=== PATIENT | male | born 1955 | race Asian ===

== ENCOUNTER 2017-04-15 13:58 | Outpatient (CLI) | payer OTHER ==
[~2017-04-15 13:58] MED LIST: AMOXICILLIN250 M2 PO; DICL75TA4 PO; FISH OIL + D3 PO; HYDR10TA47 PO; HYDR2TAB12 PO; IBUPROFEN200 M1 PO; MSM PO; OMEPRAZOLE20 M2 PO; SAW PALMETTO1 CA1 PO; TERAZOSIN5 MG PO; VITA400C10 PO; VITAMIN C1000 MG PO; VITAMIN D22000 UNIT PO; [UNRECOGNIZED DRUG - OTHER] PO
== END 2017-04-15 22:50 | disposition home or self-care (01) ==
LOC: US 13:58
DX: E01.0 Iodine-deficiency related diffuse (endemic) goiter (principal); K21.9 Gastro-esophageal reflux disease without esophagitis; E78.00 Pure hypercholesterolemia, unspecified; H93.19 Tinnitus, unspecified ear

== ENCOUNTER 2017-04-21 11:31 | Outpatient (CLI) | payer OTHER ==
[2017-04-21 13:31] LABS: POTASSIUM 3.9 mmol/L (3.6-5.2); SODIUM 137 mmol/L (136-145)
== END 2017-04-21 19:10 | disposition home or self-care (01) ==
LOC: LAB 11:31
PROVIDERS: Family Medicine
DX: E01.0 Iodine-deficiency related diffuse (endemic) goiter (principal); E04.1 Nontoxic single thyroid nodule; I65.29 Occlusion and stenosis of unspecified carotid artery; R42 Dizziness and giddiness; R79.89 Other specified abnormal findings of blood chemistry; R73.9 Hyperglycemia, unspecified; E55.9 Vitamin D deficiency, unspecified; Z79.899 Other long term (current) drug therapy; Z51.81 Encounter for therapeutic drug level monitoring
CPT/HCPCS: 80053; 80061; 81000; 82043; 82306; 82570; 83036; 84439; 84443; 84481

== ENCOUNTER 2017-05-12 07:55 | Outpatient (CLI) | payer OTHER | END 2017-05-12 18:00 | disposition home or self-care (01) | LOC: NM 07:55 | DX: E01.0 Iodine-deficiency related diffuse (endemic) goiter (principal); E04.1 Nontoxic single thyroid nodule; R42 Dizziness and giddiness | CPT/HCPCS: A9516 ==

== ENCOUNTER 2017-06-02 10:41 | Outpatient (CLI) | payer OTHER | END 2017-06-02 19:07 | disposition home or self-care (01) | LOC: RAD 10:41 | DX: M79.641 Pain in right hand (principal); M15.8 Other polyosteoarthritis ==

== ENCOUNTER 2017-12-17 10:46 | Outpatient (CLI) | payer OTHER | END 2017-12-17 19:51 | disposition home or self-care (01) | LOC: RESP 10:46 | DX: Z01.818 Encounter for other preprocedural examination (principal) | CPT/HCPCS: 93005 ==

== ENCOUNTER 2018-02-25 13:20 | Outpatient (CLI) | payer OTHER | END 2018-02-25 20:36 | disposition home or self-care (01) | LOC: MRI 13:20 | DX: M25.531 Pain in right wrist (principal); M18.11 Unilateral primary osteoarthritis of first carpometacarpal joint, right hand; S63.591A Other specified sprain of right wrist, initial encounter ==

== ENCOUNTER 2018-03-24 14:52 | Outpatient (CLI) | payer OTHER | END 2018-03-24 21:22 | disposition home or self-care (01) | LOC: RAD 14:52 | DX: M25.522 Pain in left elbow (principal) ==

== ENCOUNTER 2018-08-02 16:46 | Outpatient (CLI) | payer OTHER | END 2018-08-02 19:51 | disposition home or self-care (01) | LOC: LABW 16:46 | DX: R31.0 Gross hematuria (principal) | CPT/HCPCS: 81000 ==

== ENCOUNTER 2018-09-30 15:40 | Outpatient (CLI) | payer OTHER | END 2018-09-30 23:12 | disposition home or self-care (01) | LOC: RAD 15:40 | DX: M47.26 Other spondylosis with radiculopathy, lumbar region (principal) ==

== ENCOUNTER 2019-02-04 10:54 | Outpatient (CLI) | payer OTHER | END 2019-02-04 22:54 | disposition home or self-care (01) | LOC: CT 10:54 | DX: J32.8 Other chronic sinusitis (principal) ==

== ENCOUNTER 2019-03-12 13:38 | Outpatient (CLI) | payer OTHER | END 2019-03-12 20:11 | disposition home or self-care (01) | LOC: RAD 13:38 | DX: M47.816 Spondylosis without myelopathy or radiculopathy, lumbar region (principal) ==

== ENCOUNTER 2019-04-05 13:02 | Outpatient (CLI) | payer OTHER | END 2019-04-05 19:35 | disposition home or self-care (01) | LOC: CT 13:02 | DX: M47.816 Spondylosis without myelopathy or radiculopathy, lumbar region (principal) ==

== ENCOUNTER 2019-04-19 13:49 | Outpatient (CLI) | payer OTHER | END 2019-04-19 19:40 | disposition home or self-care (01) | LOC: RAD 13:49 → RESP 13:49 | DX: G64 Other disorders of peripheral nervous system (principal); M10.09 Idiopathic gout, multiple sites; M35.01 Sjogren syndrome with keratoconjunctivitis; Z68.32 Body mass index [BMI] 32.0-32.9, adult; Z79.899 Other long term (current) drug therapy ==

== ENCOUNTER 2019-05-02 08:00 | Outpatient (CLI) | payer OTHER | END 2019-05-02 19:21 | disposition home or self-care (01) | LOC: MRI 08:00 | DX: M54.16 Radiculopathy, lumbar region (principal) ==

== ENCOUNTER 2020-08-08 08:57 | Outpatient (CLI) | payer OTHER | END 2020-08-08 22:07 | disposition home or self-care (01) | LOC: INF 08:57 | PROVIDERS: ATTEND Internal Medicine | DX: Z23 Encounter for immunization (principal) | CPT/HCPCS: 96372 ==

== ENCOUNTER 2020-08-30 08:54 | Outpatient (CLI) | payer OTHER | END 2020-08-30 22:14 | disposition home or self-care (01) | LOC: INF 08:54 | PROVIDERS: ATTEND Internal Medicine | DX: Z23 Encounter for immunization (principal) | CPT/HCPCS: 96372 ==

== ENCOUNTER 2020-09-20 11:56 | Outpatient (CLI) | payer OTHER ==
[2020-09-20 12:23] LABS: PLATELET COUNT 280 K/uL (142-355)
[2020-09-20 12:32] LABS: POTASSIUM 3.7 mmol/L (3.6-5.2)
== END 2020-09-20 20:34 | disposition home or self-care (01) ==
LOC: LABW 11:56
PROVIDERS: ATTEND Family Medicine
DX: Z00.00 Encounter for general adult medical examination without abnormal findings (principal); M06.9 Rheumatoid arthritis, unspecified; K21.9 Gastro-esophageal reflux disease without esophagitis; E78.49 Other hyperlipidemia; I10 Essential (primary) hypertension; N40.0 Benign prostatic hyperplasia without lower urinary tract symptoms; E55.9 Vitamin D deficiency, unspecified
CPT/HCPCS: 36415; 80053; 80061; 81000; 82306; 83735; 84154; 84439; 84443; 85027

== ENCOUNTER 2020-10-07 19:51 | Emergency (ER) | payer OTHER ==
[~2020-10-07] VITALS: Ht 177.8 cm; Wt 94.8 kg
[2020-10-07 19:56] VITALS: BP 126/73; TEMP 99
== END 2020-10-07 21:07 | disposition home or self-care (01) ==
LOC: ED 19:51
DX: S39.012A Strain of muscle, fascia and tendon of lower back, initial encounter (principal); M25.561 Pain in right knee; W01.0XXA Fall on same level from slipping, tripping and stumbling without subsequent striking against object, initial encounter; Y92.89 Other specified places as the place of occurrence of the external cause
CPT/HCPCS: 96372; 99283; J1885; J2360

== ENCOUNTER 2021-04-12 10:37 | Outpatient (CLI) | payer OTHER | END 2021-04-12 20:16 | disposition home or self-care (01) | LOC: LABW 10:37 | PROVIDERS: ATTEND Specialist | DX: N32.0 Bladder-neck obstruction (principal) | CPT/HCPCS: 36415; 84153; 84154; 84403 ==

== ENCOUNTER 2021-07-25 15:07 | Outpatient (CLI) | payer OTHER | END 2021-07-25 19:04 | disposition home or self-care (01) | LOC: RAD 15:07 | PROVIDERS: ATTEND Family Medicine | DX: M79.605 Pain in left leg (principal) ==

== ENCOUNTER 2022-02-13 11:38 | Outpatient (CLI) | payer OTHER | END 2022-02-13 19:25 | disposition home or self-care (01) | LOC: RAD 11:38 | PROVIDERS: ATTEND Neurological Surgery | DX: M54.16 Radiculopathy, lumbar region (principal) ==

== ENCOUNTER 2022-03-28 15:20 | Outpatient (CLI) | payer OTHER | END 2022-03-28 19:09 | disposition home or self-care (01) | LOC: RAD 15:20 | PROVIDERS: ATTEND Internal Medicine Rheumatology | DX: M06.4 Inflammatory polyarthropathy (principal); G25.81 Restless legs syndrome ==

== ENCOUNTER 2022-08-26 15:31 | Outpatient (CLI) | payer OTHER ==
[2022-08-26 15:48] LABS: PLATELET COUNT 204 K/uL (142-355)
== END 2022-08-26 22:27 | disposition home or self-care (01) ==
LOC: LABW 15:31
PROVIDERS: ATTEND Internal Medicine Rheumatology
DX: M10.09 Idiopathic gout, multiple sites (principal); Z79.899 Other long term (current) drug therapy
CPT/HCPCS: 36415; 84550; 85027; 86140